=== PATIENT | male | born 1950 | race Caucasian/White ===

== ENCOUNTER 2017-06-22 16:41 | Emergency (ER) | payer MEDICARE, BC ==
[~2017-06-22] VITALS: Ht 175.3 cm; Wt 122.5 kg
[~2017-06-22 16:41] MED LIST: ANTIVERT25 MG PO; ASPIRIN325 MG PO; C PAP; CLONAZEPAM1 MG PO; FENOFIBRATE160 MG PO; FISH OIL500 MG PO; FLAX SEED OIL1000 MG PO; FOLGARD TABLET1 EAC1 PO; GABAPENTIN100 MG PO; GABAPENTIN800 MG; HYDROCODON-ACE1 EA11 PO; HYDROCODON-ACE1 EA14 PO; ISOMETHEPT-DIC1 EACH; LOSARTAN POTAS100 MG PO; METHYLPREDNISOLO4 M1; OCUVITE SOFTGE1 EACH PO; PERPHENAZINE4 MG PO; TEMAZEPAM30 MG PO; ZOFRAN ODT4 MG PO
[2017-06-22] MEDS ORDERED: DULOXETINE HCL30 MG PO (16:59)
[2017-06-22] MEDS ORDERED: BACLOFEN10 MG PO (16:59)
[2017-06-22] MEDS ORDERED: ASPIRIN325 MG PO (16:59)
== END 2017-06-22 17:33 | disposition home or self-care (01) ==
LOC: ED 16:41
DX: S93.402A Sprain of unspecified ligament of left ankle, initial encounter (principal); I10 Essential (primary) hypertension; M06.9 Rheumatoid arthritis, unspecified; F31.9 Bipolar disorder, unspecified; Z91.040 Latex allergy status; Z88.8 Allergy status to other drugs, medicaments and biological substances; Z88.7 Allergy status to serum and vaccine; Z79.01 Long term (current) use of anticoagulants; Z79.82 Long term (current) use of aspirin; Z79.899 Other long term (current) drug therapy; W01.0XXA Fall on same level from slipping, tripping and stumbling without subsequent striking against object, initial encounter
CPT/HCPCS: 73610; 99283

== ENCOUNTER 2018-06-10 03:46 | Emergency (ER) | payer MEDICARE ==
[~2018-06-10] VITALS: Ht 175.3 cm; Wt 129.3 kg
[~2018-06-10 03:46] MED LIST changes: +BACLOFEN10 MG PO; +DULOXETINE HCL30 MG PO
[2018-06-10] MEDS ORDERED: MELOXICAM15 MG PO (04:56)
== END 2018-06-10 05:08 | disposition home or self-care (01) ==
LOC: ED 03:46
DX: S30.0XXA Contusion of lower back and pelvis, initial encounter (principal); I10 Essential (primary) hypertension; Z87.891 Personal history of nicotine dependence; Z91.040 Latex allergy status; Z88.8 Allergy status to other drugs, medicaments and biological substances; Z79.82 Long term (current) use of aspirin; Z79.899 Other long term (current) drug therapy; W06.XXXA Fall from bed, initial encounter
CPT/HCPCS: 72100; 99283

== ENCOUNTER 2018-07-31 05:32 | Emergency (ER) | payer MEDICARE ==
[~2018-07-31] VITALS: Ht 172.7 cm; Wt 129.3 kg
[~2018-07-31 05:32] MED LIST changes: +MELOXICAM15 MG PO
[2018-07-31] MEDS ORDERED: MELATONIN5 M2 PO (05:51)
== END 2018-07-31 06:11 | disposition home or self-care (01) ==
LOC: ED 05:32
DX: L25.9 Unspecified contact dermatitis, unspecified cause (principal); I10 Essential (primary) hypertension; E11.9 Type 2 diabetes mellitus without complications; F31.9 Bipolar disorder, unspecified; Z87.891 Personal history of nicotine dependence; Z91.040 Latex allergy status; Z88.8 Allergy status to other drugs, medicaments and biological substances; Z79.899 Other long term (current) drug therapy; Z79.82 Long term (current) use of aspirin
CPT/HCPCS: 99283

== ENCOUNTER 2019-11-27 18:04 | Emergency (ER) | payer MEDICARE ==
[~2019-11-27] VITALS: Ht 172.7 cm; Wt 117.9 kg
[~2019-11-27 18:04] MED LIST changes: +MELATONIN5 M2 PO
--- OUTSIDE RECORDS SUMMARY | 2019-11-27 18:06 | XMS ---
PreManage Notification: VERONICA GARCIAS Security Occupational Therapy Director Events No recent Security Events currently on file CRITERIA MET - [facility] CARE PROVIDERS BECKY BRADSHAW [facility] 12/12/2018-Current PHONE: Unknown BECKY BRADSHAW [facility] 12/12/2018-Current PHONE: [phone] A[place]INE [facility] 12/11/2017-Current PHONE: Unknown Gilberto Bradshaw Current PHONE: Unknown Leonardo has no Care Guidelines for this patient. Dionisio VISIT COUNT (12 MO.) 1 KEENA Carter TOTAL 1 NOTE: Visits indicate total known visits. ED/UCC VISIT TRACKING (12 MO.) 11/27/2019 18:05 KEENA Paul [place] TYPE: Emergency COMPLAINT: - FALL INPATIENT VISIT TRACKING (12 MO.) No inpatient visits to display in this time frame [id number]
== END 2019-11-27 20:19 | disposition home or self-care (01) ==
LOC: ED 18:04
DX: S46.911A Strain of unspecified muscle, fascia and tendon at shoulder and upper arm level, right arm, initial encounter (principal); S86.812A Strain of other muscle(s) and tendon(s) at lower leg level, left leg, initial encounter; R07.89 Other chest pain; W22.8XXA Striking against or struck by other objects, initial encounter; I10 Essential (primary) hypertension; F31.9 Bipolar disorder, unspecified; G47.30 Sleep apnea, unspecified; Z91.040 Latex allergy status; Z88.8 Allergy status to other drugs, medicaments and biological substances; Z79.899 Other long term (current) drug therapy; Z79.82 Long term (current) use of aspirin
CPT/HCPCS: 71046; 72125; 73030; 73560; 99284-25

== ENCOUNTER 2020-01-16 18:38 | Emergency (ER) | payer MEDICARE ==
[~2020-01-16] VITALS: Ht 172.7 cm; Wt 117.9 kg
--- OUTSIDE RECORDS SUMMARY | 2020-01-16 18:40 | XMS ---
PreManage Notification: VERONICA GARCIAS Security Alcohol Rubber Events No recent Security Events currently on file CRITERIA MET - [facility] CARE PROVIDERS TUNG SYLVESTER Nurse Practitioner: 11/30/2019-Current MESSI RAMSAY Psychiatric/Mental Health PHONE: Unknown BECKY BRADSHAW [facility] 12/07/2019-Current PHONE: [phone] AUGUSTINE Boss [facility] 12/07/2019-Current PHONE: Unknown AUGUSTINE PENA [facility] 12/11/2017-Current PHONE: Unknown Leonardo has no Care Guidelines for this patient. Dionisio VISIT COUNT (12 MO.) 2 KEENA Carter TOTAL 2 NOTE: Visits indicate total known visits. 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
[2020-01-16] MEDS ORDERED: BENGAY113 GM TOP (18:42)
== END 2020-01-16 19:38 | disposition home or self-care (01) ==
LOC: ED 18:38
DX: S46.911A Strain of unspecified muscle, fascia and tendon at shoulder and upper arm level, right arm, initial encounter (principal); X58.XXXA Exposure to other specified factors, initial encounter; I10 Essential (primary) hypertension; F31.9 Bipolar disorder, unspecified; G47.30 Sleep apnea, unspecified; R73.03 Prediabetes; Z87.891 Personal history of nicotine dependence; Z88.8 Allergy status to other drugs, medicaments and biological substances; Z91.040 Latex allergy status; Z79.899 Other long term (current) drug therapy
CPT/HCPCS: 99284

== ENCOUNTER 2020-07-28 06:25 | Day surgery (SDC) | payer MEDICARE ==
[~2020-07-28] VITALS: Ht 172.7 cm; Wt 116.1 kg
[~2020-07-28 06:25] MED LIST changes: +BENGAY113 GM TOP; +NEURONTIN100 MG PO
--- NOTE | 2020-07-28 07:58 | NUR ---
PT STATES FALLING ON STAIRS AT HOME LAST WEEK, HAS SCBAS ON MEDIAL LEFT ANKLE. PT ALSO STATES FALLING THIS MORNING IN BATHROOM. FALL RISK BAND ON PATIENT TODAY, CALL LIGHT WITHIN REACH.
--- NOTE | 2020-07-28 10:50 | NUR ---
07/28/20 1050 Iram Yancey 1044 PATIENT SLEEPING, DOES NOT AWAKEN WITH VERBAL STIMULI. RESP EVEN AND UNLABORED, MASK AT 6 LITERS. PATIENT HAS ORAL AIRWAY AND TWO NASAL AIRWAYS IN MOUTH.
--- NOTE | 2020-07-28 11:16 | NUR ---
PT ALERT, ORIENTED AND SEEMS PLEASED I VISITED. PT STATED HE HAS A FRIEND THAT IS TO PICKUP FOLLOWING DC, BUT CAN'T REMEMBER HIS NAME OR HIS PHONE #. ALL OTHER QUESTIONS ASKED, ANSWERED. PT REQUESTED PRAYER AND THEN PRAYED FOR ME.
--- NOTE | 2020-07-28 18:32 | OR ---
[facility] [address] [place], [place] [address] Signed DATE OF OPERATION: 07/28/2020 SURGEON: Nanci Lucas MD PREOPERATIVE DIAGNOSES: 1. Episodic fecal incontinence improved with fiber supplement. 2. History of anorectal surgery in [place], [place] 15 years ago. POSTOPERATIVE DIAGNOSES: 1. Extensive diverticular disease of sigmoid and left colon. 2. Internal hemorrhoids. 3. Small polyp at the appendiceal orifice (excised). PROCEDURE: 1. Total colonoscopy to cecum with cold morcellation, excision of cecal polyp. 2. Rectal biopsy. ANESTHESIA: Intravenous sedation, propofol infusion; Nanci Ojeda CRNA. INDICATION: This 70-year-old white man is a patient of Dr. Gilberto Bradshaw of [place], [place], has episodes of fecal incontinence over time. He underwent anorectal surgery in 2014 for the same issue in [place], [place] by Dr. Bowles. He still has episodes of fecal incontinence worse when standing on his feet for prolonged periods. He has been recommended for fiber supplement, which is helpful to him, but he is highly variable and compliance with it long-term. He last underwent colonoscopy in 2013 and he is here for a screening colonoscopy at this time. The risks of bleeding, infection, and perforation were reviewed with him. He understands and wished to proceed. FINDINGS: The prep was good. Complete colonoscopy was undertaken to the cecum without question. He had a small apparent polyp near the appendiceal orifice, this was excised with cold snare technique completely. Extensive diverticulosis was noted of the sigmoid and left colon. The rectum appeared normal. There was internal hemorrhoidal change however. DESCRIPTION OF PROCEDURE: The patient was brought to the surgical endoscopy suite room #2, placed in lateral decubitus position, given intravenous sedation by the in school suspension coordinator with propofol infusional technique. Digital rectal examination showed no sign of anorectal dysmorphic Electronically Signed By: NANCI LUCAS MD 07/28/20 1832 PATIENT NAME: VERONICA GARCIAS OPERATIVE REPORT DATE OF : 54 REPORT #: [id number] PHYSICIAN: NANCI LUCAS MD PCP: GILBERTO BRADSHAW DO REPORT IS CONFIDENTIAL AND NOT TO BE RELEASED WITHOUT AUTHORIZATION [facility] [address] [place], [place] [address] Signed change and sphincter tone was normal. An Olympus video colonoscope was passed in the rectum and manipulated throughout the colon noting extensive diverticular change of the sigmoid and left colon. The scope was ultimately advanced to the cecum. The ileocecal valve was well identified as was the appendiceal orifice. There appeared to be a possible polyp near the appendiceal orifice. Narrow band imaging suggested this as well. A cold snare technique was used to excise the polyp as well as morcellation biopsies. The scope was withdrawn from that point and examination undertaken showed no sign of abnormality other than the diverticular changes as previously described. The rectum appeared normal. Retroflexed view confirmed internal hemorrhoidal change. Biopsies taken of the rectum to assess for occult colitis. The scope was removed and the patient was taken to the recovery room in good condition. CONCLUDING DIAGNOSIS: 1. Extensive diverticulosis. 2. Fecal incontinence without anatomic basis currently. 3. Possible small polyp at the appendiceal orifice site. PLAN: He will return to the ongoing care of Dr. Bradshaw. I have recommended and continue to recommend Citrucel one scoop daily. MD ASH Clifford/MODL /[id number] cc: Gilberto Bradshaw DO Copies: GILBERTO BRADSHAW DO ~ Electronically Signed By: NANCI LUCAS MD 07/28/20 1832 PATIENT NAME: VERONICA GARCIAS [facility] OPERATIVE REPORT DATE OF : 54 REPORT #: [id number] PHYSICIAN: NANCI LUCAS MD PCP: GILBERTO BRADSHAW DO REPORT IS CONFIDENTIAL AND NOT TO BE RELEASED WITHOUT AUTHORIZATION
== END 2020-07-28 11:35 | disposition home or self-care (01) ==
LOC: OPS 06:25 → DS 06:25 → OPS 06:45
PROVIDERS: ATTEND Surgery
PROC: 0DBP8ZX Excision of Rectum, Via Natural or Artificial Opening Endoscopic, Diagnostic (ICD-10-PCS; 2020-07-28)
PROC: 0DBH8ZZ Excision of Cecum, Via Natural or Artificial Opening Endoscopic (ICD-10-PCS; principal; 2020-07-28 06:45)
DX: K63.5 Polyp of colon (principal); K57.30 Diverticulosis of large intestine without perforation or abscess without bleeding; K64.8 Other hemorrhoids; I10 Essential (primary) hypertension; F32.9 Major depressive disorder, single episode, unspecified; G47.30 Sleep apnea, unspecified; E66.01 Morbid (severe) obesity due to excess calories; Z91.048 Other nonmedicinal substance allergy status; Z91.040 Latex allergy status; Z88.7 Allergy status to serum and vaccine; Z88.8 Allergy status to other drugs, medicaments and biological substances; Z79.899 Other long term (current) drug therapy; Z68.38 Body mass index [BMI] 38.0-38.9, adult
CPT/HCPCS: 88305; J0690; J2704; J7121

== ENCOUNTER 2020-10-10 12:42 | Emergency (ER) | payer MEDICARE ==
[~2020-10-10] VITALS: Ht 172.7 cm; Wt 114.3 kg
[2020-10-10] MEDS ORDERED: BACLOFEN10 MG PO (13:02)
== END 2020-10-10 15:10 | disposition home or self-care (01) ==
LOC: ED 12:42
DX: S92.422A Displaced fracture of distal phalanx of left great toe, initial encounter for closed fracture (principal); X50.9XXA Other and unspecified overexertion or strenuous movements or postures, initial encounter; I10 Essential (primary) hypertension; F32.9 Major depressive disorder, single episode, unspecified; G47.30 Sleep apnea, unspecified; Z87.891 Personal history of nicotine dependence; Z88.8 Allergy status to other drugs, medicaments and biological substances; Z91.040 Latex allergy status; Z79.899 Other long term (current) drug therapy
CPT/HCPCS: 73610; 73630; 99283-25

== ENCOUNTER 2021-03-19 23:19 | Emergency (ER) | payer MEDICARE, OTHER ==
[~2021-03-19] VITALS: Ht 172.7 cm; Wt 126.1 kg
--- OUTSIDE RECORDS SUMMARY | 2021-03-19 23:22 | XMS ---
PreManage Notification: VERONICA GARCIAS Security Creative Recruiter Events No recent Security Events currently on file CRITERIA MET - [facility] CARE PROVIDERS TUNG SYLVESTER Nurse Practitioner: 11/30/2019-Current PRIVATE TUTORS AND TEACHERS DEVENDRA Psychiatric/Mental Health PHONE: Unknown BECKY BRADSHAW [facility] 12/07/2019-Current PHONE: [phone] Leonardo has no Care Guidelines for this patient. ETing VISIT COUNT (12 MO.) 2 KEENA Carter TOTAL 2 NOTE: Visits indicate total known visits. 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
--- NOTE | 2021-03-20 13:38 | EKG ---
[facility] [address] [facility] [place] [address] Signed Normal sinus rhythm Rightward axis Abnormal QRS-T angle, consider primary T wave abnormality Abnormal ECG When compared with ECG of 27-OCT-2018 05:21, T wave inversion now evident in Inferior leads Confirmed by SALONI WRIGHT DO ([id number]) on 03/20/2021 1:38:03 PM Electronically Signed By: SALONI WRIGHT DO 03/20/21 1338 PATIENT NAME: VERONICA GARCIAS Electrocardiogram DATE OF : 54 PHYSICIAN: SALONI WRIGHT DO REPORT #: [id number] REPORT IS CONFIDENTIAL AND NOT TO BE RELEASED WITHOUT AUTHORIZATION
== END 2021-03-20 00:49 | disposition home or self-care (01) ==
LOC: ED 23:19
DX: M25.511 Pain in right shoulder (principal); R20.2 Paresthesia of skin; I10 Essential (primary) hypertension; G47.30 Sleep apnea, unspecified; Z91.040 Latex allergy status; Z88.8 Allergy status to other drugs, medicaments and biological substances; Z79.899 Other long term (current) drug therapy
CPT/HCPCS: 71045; 80053; 83735; 84484; 85025; 93005; 93010; 99284-25

== ENCOUNTER 2022-03-23 02:02 | Emergency (ER) | payer MEDICARE ==
[~2022-03-23] VITALS: Ht 172.7 cm; Wt 110.7 kg
--- OUTSIDE RECORDS SUMMARY | 2022-03-23 02:04 | XMS ---
PreManage Notification: VERONICA GARCIAS Security Signal Worker Helper Events No recent Security Events currently on file CRITERIA MET - [facility] CARE PROVIDERS TUNG SYLVESTER Nurse Practitioner: 11/30/2019-Current DEVENDRA Psychiatric/Mental Health PHONE: Unknown BECKY BRADSHAW [facility] 12/07/2019-Current PHONE: Unknown Leonardo has no Care Guidelines for this patient. Dionisio VISIT COUNT (12 MO.) 1 KEENA Carter TOTAL 1 NOTE: Visits indicate total known visits. ED/UCC VISIT TRACKING (12 MO.) 03/23/2022 02:03 KEENA Paul OR TYPE: Emergency COMPLAINT: - SHOULDER AND FOOT PAIN INPATIENT VISIT TRACKING (12 MO.) No inpatient visits to display in this time frame [id number]
== END 2022-03-23 03:50 | disposition home or self-care (01) ==
LOC: ED 02:02
DX: M25.512 Pain in left shoulder (principal); M79.672 Pain in left foot; G89.29 Other chronic pain; I10 Essential (primary) hypertension; E11.9 Type 2 diabetes mellitus without complications; M06.9 Rheumatoid arthritis, unspecified; G47.30 Sleep apnea, unspecified; Z88.8 Allergy status to other drugs, medicaments and biological substances; Z91.040 Latex allergy status; Z79.899 Other long term (current) drug therapy
CPT/HCPCS: 73630; 96372; 99283-25; J1885

== ENCOUNTER 2022-04-17 12:11 | Emergency (ER) | payer MEDICARE ==
[~2022-04-17] VITALS: Ht 172.7 cm; Wt 110.7 kg
--- OUTSIDE RECORDS SUMMARY | 2022-04-17 12:14 | XMS ---
PreManage Notification: VERONICA GARCIAS Security Eyeglass Frames Inspector Events No recent Security Events currently on file CRITERIA MET - [facility] - [facility] - 2 Visits in 30 Days CARE PROVIDERS TUNG SYLVESTER Nurse Practitioner: 11/30/2019-Current DEVENDRA Psychiatric/Mental Health PHONE: Unknown BECKY BRADSHAW [facility] 12/07/2019-Current PHONE: Unknown Leonardo has no Care Guidelines for this patient. Dionisio VISIT COUNT (12 MO.) 2 [facility] TOTAL 2 NOTE: Visits indicate total known visits. ED/UCC VISIT TRACKING (12 MO.) 04/17/2022 12:11 KEENA Paul OR TYPE: Emergency COMPLAINT: - EXTREMITY PAIN 03/23/2022 02:03 KEENA Paul OR TYPE: Emergency COMPLAINT: - SHOULDER AND FOOT PAIN DIAGNOSES: - Allergy status to other drugs, medicaments and biological substances - Pain in left foot - Type 2 diabetes mellitus without complications - Pain in left shoulder - Sleep apnea, unspecified - Essential (primary) hypertension - Rheumatoid arthritis, unspecified - Latex allergy status - Other chronic pain - Other mcc (current) drug therapy INPATIENT VISIT TRACKING (12 MO.) No inpatient visits to display in this time frame [id number]
[2022-04-17] MEDS ORDERED: LIDODERM1 EACH TD (12:31)
== END 2022-04-17 13:07 | disposition home or self-care (01) ==
LOC: ED 12:11
DX: M25.512 Pain in left shoulder (principal); I10 Essential (primary) hypertension; R73.03 Prediabetes; M06.9 Rheumatoid arthritis, unspecified; G47.30 Sleep apnea, unspecified; Z91.040 Latex allergy status; Z88.8 Allergy status to other drugs, medicaments and biological substances; Z79.899 Other long term (current) drug therapy
CPT/HCPCS: 96372; 99283; J1885

== ENCOUNTER 2022-08-08 05:07 | Emergency (ER) | payer MEDICARE ==
[~2022-08-08] VITALS: Ht 172.7 cm; Wt 110.0 kg
[~2022-08-08 05:07] MED LIST changes: +LIDODERM1 EACH TD
--- OUTSIDE RECORDS SUMMARY | 2022-08-08 05:08 | XMS ---
PreManage Notification: VERONICA GARCIAS Security Service Desk Analyst Events No recent Security Events currently on file CRITERIA MET - [facility] CARE PROVIDERS TUNG SYLVESTER Nurse Practitioner: 11/30/2019-Current DEVENDRA Psychiatric/Mental Health PHONE: Unknown BECKY BRADSHAW [facility] 12/07/2019-Current PHONE: Unknown Leonardo has no Care Guidelines for this patient. Dionisio VISIT COUNT (12 MO.) 3 KEENA Carter TOTAL 3 NOTE: Visits indicate total known visits. 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
[2022-08-08] MEDS ORDERED: LAMOTRIGINE100 MG PO (05:18)
[2022-08-08] MEDS ORDERED: CAPLYTA42 MG PO (05:19)
== END 2022-08-08 06:22 | disposition home or self-care (01) ==
LOC: ED 05:07
DX: R42 Dizziness and giddiness (principal); R11.0 Nausea; R51.9 Headache, unspecified; I10 Essential (primary) hypertension; M19.90 Unspecified osteoarthritis, unspecified site; G47.30 Sleep apnea, unspecified; Z88.8 Allergy status to other drugs, medicaments and biological substances; Z91.040 Latex allergy status; Z79.899 Other long term (current) drug therapy
CPT/HCPCS: 99284

== ENCOUNTER 2022-10-21 22:29 | Emergency (ER) | payer MEDICARE ==
[~2022-10-21] VITALS: Ht 172.7 cm; Wt 110.0 kg
[~2022-10-21 22:29] MED LIST changes: +CAPLYTA42 MG PO; +LAMOTRIGINE100 MG PO
--- OUTSIDE RECORDS SUMMARY | 2022-10-21 22:34 | XMS ---
PreManage Notification: VERONICA GARCIAS Security Collar Tacker Events No recent Security Events currently on file CRITERIA MET - [facility] CARE PROVIDERS TUNG SYLVESTER Nurse Practitioner: 11/30/2019-Current DEVENDRA Psychiatric/Mental Health PHONE: Unknown BECKY BRADSHAW [facility] 12/07/2019-Current PHONE: Unknown Leonardo has no Care Guidelines for this patient. Dionisio VISIT COUNT (12 MO.) 4 KEENA Carter TOTAL 4 NOTE: Visits indicate total known visits. ED/UCC VISIT TRACKING (12 MO.) 10/21/2022 22:31 KEENA Paul [place] TYPE: Emergency COMPLAINT: - DIFFICULTY BREATHING AND HEADACHE 08/08/2022 05:07 KEENA Paul [place] TYPE: Emergency COMPLAINT: - WEAKNESS DIAGNOSES: - Sleep apnea, unspecified - Other usp (current) drug therapy - Essential (primary) hypertension - Nausea - Latex allergy status - Unspecified osteoarthritis, unspecified site - Dizziness and giddiness - Headache, unspecified - Allergy status to other drugs, medicaments and biological substances 04/17/2022 12:11 KEENA Paul [place] TYPE: Emergency COMPLAINT: - EXTREMITY PAIN DIAGNOSES: - Rheumatoid arthritis, unspecified - Pain in left shoulder - Prediabetes - Essential (primary) hypertension - Allergy status to other drugs, medicaments and biological substances - Other usp (current) drug therapy - Sleep apnea, unspecified - Latex allergy status 03/23/2022 02:03 KEENA Paul OR TYPE: Emergency COMPLAINT: - SHOULDER AND FOOT PAIN DIAGNOSES: - Allergy status to other drugs, medicaments and biological substances - Latex allergy status - Essential (primary) hypertension - Pain in left shoulder - Pain in left foot - Other chronic pain - Rheumatoid arthritis, unspecified - Sleep apnea, unspecified - Type 2 diabetes mellitus without complications - Other usp (current) drug therapy INPATIENT VISIT TRACKING (12 MO.) No inpatient visits to display in this time frame [id number]
[2022-10-21] MEDS ORDERED: METFORMIN HCL500 M1 PO (22:59)
--- NOTE | 2022-10-22 19:40 | EKG ---
[facility] [address] [facility] [place] [address] Signed Normal sinus rhythm Right bundle branch block Left anterior fascicular block Bifascicular block Abnormal ECG When compared with ECG of 19-MAR-2021 23:30, (RBBB and left anterior fascicular block) is now present Confirmed by JENNIFER ROJAS MD ([id number]) on 10/22/2022 7:40:08 PM Electronically Signed By: JENNIFER ROJAS MD 10/22/221939 PATIENT NAME: VERONICA GARCIAS Electrocardiogram DATE OF : 54 PHYSICIAN: JENNIFER ROJAS MD REPORT #: [id number] REPORT IS CONFIDENTIAL AND NOT TO BE RELEASED WITHOUT AUTHORIZATION
== END 2022-10-22 05:14 | disposition home or self-care (01) ==
LOC: ED 22:29
DX: E86.0 Dehydration (principal); R06.02 Shortness of breath; R06.00 Dyspnea, unspecified; I10 Essential (primary) hypertension; G47.30 Sleep apnea, unspecified; Z91.040 Latex allergy status; Z88.8 Allergy status to other drugs, medicaments and biological substances; Z79.899 Other long term (current) drug therapy; Z79.84 Long term (current) use of oral hypoglycemic drugs; Z20.822 Contact with and (suspected) exposure to COVID-19
CPT/HCPCS: 36415; 71045; 80048; 80053; 81003; 83605; 84484; 85025; 85379; 87040; 87502; 93005; 93010; 99285-25; C9803; J7121; U0003